=== PATIENT | female | born 1935 | race American Indian/Alaskan Native ===

== ENCOUNTER 2017-01-02 14:09 | Outpatient (CLI) | payer MEDICARE ==
--- NOTE | 2017-01-02 15:24 | XRay Report ---
AP chest x-ray. History: Shortness of breath and pedal edema. Findings: The heart is mildly enlarged. There is some mild central venous congestion, and the overall pattern is unchanged since 2015. No focal infiltrates or pleural fluid are present. The bony structures are unremarkable. Impression: No acute findings or interval changes since 2015.
== END 2017-01-02 14:10 | disposition home or self-care (01) ==
LOC: XRAY 14:09 → PET 14:09 → XRAY 14:10
PROVIDERS: ATTEND Family Medicine
DX: I51.7 Cardiomegaly (principal); I87.8 Other specified disorders of veins; R06.02 Shortness of breath; R60.9 Edema, unspecified
CPT/HCPCS: 71020

== ENCOUNTER 2018-11-24 14:55 | Inpatient (IN) | payer MEDICARE ==
[2018-11-24] MEDS ORDERED: SODIUM CHLORIDE FLUSH SYRINGE 10 ML IV PRN (15:11)
[2018-11-24] MEDS ORDERED: D50W (25GM) Syringe IV PRN (15:46)
[2018-11-24 17:27] LABS: Hematocrit 37.6 % (30.3-42.9); Hemoglobin 12.7 gm/dl (10.1-14.3); Mean Corpuscular HGB Conc 34 % (30-34); Mean Corpuscular Volume 90 fl (79-97); Platelet Count 273 K/mm3 (140-440); Red Blood Count 4.18 M/mm3 (3.65-5.03); Red Cell Distribution Width 13.9 % (13.2-15.2)
[2018-11-24 17:37] LABS: INR 0.89 (0.87-1.13)
[2018-11-24 17:49] LABS: Alanine Aminotransferase 14 units/L (7-56); Albumin 3.7 g/dL (3.9-5); BUN/Creatinine Ratio 23; Blood Urea Nitrogen 14 mg/dL (7-17); Calcium 9.4 mg/dL (8.4-10.2); Hemolysis Index 5
--- NOTE | 2018-11-24 17:54 | XRay Report ---
PROCEDURE: XR CHEST ROUTINE 2V TECHNIQUE: AP and lateral chest HISTORY: COUGH, SOB, R/O PNEUMONIA COMPARISONS: None FINDINGS: Low lung volume exam. Trachea midline. Mild cardiomegaly. Atherosclerotic calcification of the aorta No pneumothorax. No sizable effusion. No acute airspace disease Thoracolumbar scoliosis. Advanced multilevel degenerative disc disease IMPRESSION: Cardiomegaly. No overt failure. No acute pulmonary disease. This document is electronically signed by Nick Sweeney MD., November 24 2018 05:52:50 PM ET
[2018-11-24] MEDS ORDERED: PROTONIX IV SCH (18:00)
[2018-11-24] MEDS ORDERED: LOVENOX SUB-Q SCH (18:00)
[2018-11-24 18:29] LABS: Total Cells Counted 100
[2018-11-24 18:30] LABS: RBC Morphology Normal
[2018-11-24] MEDS: HumaLOG SUB-Q SCH ×2 (18:56→23:12)
--- NOTE | 2018-11-24 19:59 | History and Physical Report ---
History of Present Illness Date of examination: 11/24/18 Date of admission: 11/24/18 15:34 Chief complaint: cough, shortness of breath, altered mental status History of present illness: Patient is an 83-year-old lady with history of diabetes mellitus, hypertension, degenerative joint disease of the left hip, presented to my office today 11/24/18, in company of her granddaughter complaining of progressively worsening shortness of breath and cough for the past 2 days. Cough is nonproductive. Has subjective fever. Denies any chest pain, orthopnea or proximal nocturnal dyspnea. No abdominal pain nausea or vomiting. Patient was said to be altered in mental status from a baseline of being very interactive and very cognitive. Direct admission was therefore requested. Tempearture on admission was 100.4F Chest x-ray showed cardiomegaly. CBC showed leukocytosis of 14.9. Had elevated blood sugar of 200. Past History Past Medical History: diabetes, hypertension, other (DJD of the hip) Social history: denies: smoking, alcohol abuse, prescription drug abuse Family history: denies: hypertension Medications and Allergies Allergies Allergy/AdvReac Type Severity Reaction Status Date / Time aspirin AdvReac Unknown Verified 08/06/15 01:01 Home Medications Medication Instructions Recorded Confirmed Last Taken Type Saxagliptin HCl [Onglyza] 5 mg PO DAILY 08/06/15 11/24/18 Unknown History Albuterol *Only Ed* [Proventil 2.5 mg IH TIDRT PRN #60 nebu 08/10/15 11/24/18 Unknown Rx 0.5% NEBS] HYDROcodone/APAP 5-325 [[place] 1 each PO Q6H PRN #40 tablet 08/10/15 11/24/18 Unknown Rx 5-325 mg TAB] HYDROcodone/HOMATROP 5-1.5 5 ml PO BID PRN #200 oral liquid 08/10/15 11/24/18 Unknown Rx [HYDROcodone-Homatropin 5-1.5 mg per 5 ML] Linagliptin [Tradjenta] 5 mg PO QDAY #30 tablet 08/10/15 11/24/18 Unknown Rx Lisinopril [Zestril TAB] 40 mg PO QDAY #30 tablet 08/10/15 11/24/18 Unknown Rx amLODIPine [Norvasc] 10 mg PO QDAY #30 tablet 08/10/15 11/24/18 11/23/18 23:00 Rx glipiZIDE [Glucotrol] 5 mg PO BID #30 tablet 08/10/15 11/24/18 11/23/18 23:00 Rx cephALEXin [Keflex] 500 mg PO Q12HR #20 cap 04/30/16 11/24/18 Unknown Rx Active Meds: Active Medications Acetaminophen (Tylenol) 650 mg PO Q4H PRN PRN Reason: Pain MILD(1-3)/Fever >100.5/MARTI Albuterol/Ipratropium (Duoneb *Not For Prn Use*) 1 ampul IH Q6HRT [facility] Benzonatate (Tessalon Perles) 100 mg PO TID [facility] Dextrose (D50w (25gm) Syringe) 50 ml IV PRN PRN PRN Reason: Hypoglycemia Enoxaparin Sodium (Lovenox) 30 mg SUB-Q QDAY [facility] Ceftriaxone Sodium (Rocephin/Ns 1 Gm/50 Ml) 1 gm in 50 mls @ 100 mls/hr IV Q24HR [facility]; Protocol Azithromycin 500 mg/ Sodium (Chloride) 250 mls @ 250 mls/hr IV Q24HR [facility] Insulin Human Lispro (Humalog) 0 unit SUB-Q ACHS [facility]; Protocol Last Admin: 11/24/18 18:56 Dose: 3 unit Documented by: Pantoprazole Sodium (Protonix) 20 mg IV DAILY [facility] Last Admin: 11/24/18 18:59 Dose: 20 mg Documented by: Pneumococcal Polyvalent Vaccine (Pneumovax 23) 0.5 ml IM .ONCE ONE Stop: 11/25/18 12:01 Sodium Chloride (Sodium Chloride Flush Syringe 10 Ml) 10 ml IV BID [facility] Sodium Chloride (Sodium Chloride Flush Syringe 10 Ml) 10 ml IV PRN PRN PRN Reason: LINE FLUSH Review of systems Constitutional: Well Nourished and Well developed. Head: NC/ AT Eyes: Denies any visual impairments. No discharge from the eyes Nose: Denies any rhinorrhea or epistaxis Throats: Denies any post nasal drainage. Ears: Denies any hearing deficits Cardiovascular system: Denies any chest pain, shortness of breath, orthopnea, paroxysmal nocturnal dyspnea, or palpitation. Respiratory system: Denies any cough, difficulty breathing, wheezing, pleuritic chest pain, Gastrointestinal system: Denies any abdominal pain, nausea vomiting, hematemesis or melena. Neurological system: Denies any headache, slurred speech, facial droop, lateralizing weakness Genitalia system: Denies any dysuria, urinary frequency or urgency, urethral discharge Skin: No rashes, hyperpigmented spots. Hematological: Denies any cervical tenderness hemorrhages or petechia. Immunological: Denies any multiple septic spots, Lymphatic: Denies any generalized lymphadenopathy. Endocrine: Denies any polyuria, polydipsia, polyphagia. No heat or cold intolerance. Musculoskeletal system: No joint pain or swelling. Psych: No visual, tactile, auditory or hallucination Exam - Physical Exam Narrative exam: Constitutional: Ill-looking. Ambulates with a cane and support from weakness Head: Normocephalic atraumatic Eyes: Pupils are equal round and reactive to light Nose: No enlarged turbinates, no septal deviation. Mouth: Moist mucous membranes. Neck: Supple no thyromegaly. No bruit. No JVD Heart: Regular rate and rhythm, S1-S2 normal. No rubs murmurs or gallop Lungs: Clear to auscultation bilaterally. no rales or rhonchi Abdomen: Soft, nontender. Bowel sound are present. Extremities: No edema, no cyanosis, no clubbing. Neuro: Alert oriented Oriented x3. No focal sensory or motor deficit. Skin: No rashes or hyperpigmented spots Musculoskeletal system: No joint pain or swelling Hematological: No petechia or subcutanous hemorrhages. Immunological: No multiple septic spots on the skin Lymphatic: No generalized lymphadenopathy Psychiatry: Euthymic. Calm. - Constitutional Vitals: Temp Pulse Resp BP Pulse Ox 100.0 F H 82 18 148/67 92 11/24/18 16:18 11/24/18 16:18 11/24/18 16:18 11/24/18 16:18 11/24/18 16:18 Results - Labs CBC & Chem 7: 11/24/18 17:08 11/24/18 17:08 Labs: Abnormal lab results 11/24/18 11/24/18 11/24/18 Range/Units 17:08 17:08 18:46 WBC 14.9 H (4.5-11.0) K/mm3 Seg Neuts % (Manual) 92.0 H (40.0-70.0) % Lymphocytes % (Manual) 3.0 L (13.4-35.0) % Seg Neutrophils # Man 13.7 H (1.8-7.7) K/mm3 Lymphocytes # (Manual) 0.4 L (1.2-5.4) K/mm3 Creatinine 0.6 L (0.7-1.2) mg/dL Glucose 198 H (65-100) mg/dL POC Glucose 205 H (70-105) Albumin 3.7 L (3.9-5) g/dL Assessment and Plan Patient is an 83-year-old lady with a history of diabetes mellitus, hypertension and DJD of the left hip was admitted for cough and shortness of breath and alteration of her mental status. Her leukocytosis and cardiomegaly. - SIRS - with fever and Leukocytosis Blood and urine Cx -Possible pneumonia Blood and sputum culture ordered Pulse ox every 12 hours IV Rocephin and vancomycin Supplemental oxygen to maintain sat greater than 94 -Shortness of breath and cough Nasal swab for influenza A and B Likely secondary to #1 above Continue bronchodilators and supplemental oxygen - Metabolic encephalopathy Secondary to preceding diagnosis Judicious IV hydration given patient's age and cardiomegaly Continue to treat underlying factors -Diabetes mellitus type 2 Consistent carbohydrate diet, Obtain A1c, urinary microalbumin, Sliding scale insulin - Developed prophylaxis with Lovenox GI with Pepcid - Discussed clinical findings and management plan with pt's daughters and granddaughter in the room. Code status Full: Code Time spend: 45 mins
[2018-11-24] MEDS: ZITHROMAX 500 MG in NACL 0.9% 250ML 250 ML IV SCH (20:20)
[2018-11-24] MEDS: ZESTRIL PO SCH (20:20)
[2018-11-24] MEDS: NORVASC PO SCH (20:21)
[2018-11-24] MEDS: TYLENOL PO PRN (20:59)
[2018-11-24] MEDS ORDERED: NACL 0.45% 1000 ML 1,000 ML IV SCH (21:00)
[2018-11-24] MEDS: ROCEPHIN/NS 1 GM/50 ML 1 GM/50 ML BAG IV SCH (21:03)
[2018-11-24] MEDS: TESSALON PERLES PO SCH ×2 (21:04)
[2018-11-24] MEDS: DUONEB *Not for PRN Use IH SCH (21:22)
[2018-11-24 21:49] LABS: Chol/HDL Ratio 2.37 %
[2018-11-24] MEDS: SODIUM CHLORIDE FLUSH SYRINGE 10 ML IV SCH (23:13)
[2018-11-25 01:53] LABS: Bilirubin,Urine NEG (Negative); Blood,Urine SM (Negative); Color,Urine Colorless (Yellow); Protein,Urine <15 mg/dL mg/dL (Negative); RBC,Urine < 1.0 /HPF (0.0-6.0); Urobilinogen,Urine < 2.0 mg/dL (<2.0); WBC,Urine < 1.0 /HPF (0.0-6.0)
[2018-11-25 01:59] LABS: Creatinine,Urine 16.9 mg/dL (0.1-20.0)
[2018-11-25 05:53] LABS: Basophils % (Auto) 0.2 % (0.0-1.8); Eosinophils % (Auto) 0.4 % (0.0-4.3); Hematocrit 33.6 % (30.3-42.9); Hemoglobin 11.3 gm/dl (10.1-14.3); Lymphocytes # (Auto) 1.2 K/mm3 (1.2-5.4); Lymphocytes % (Auto) 10.1 % (13.4-35.0); Mean Corpuscular HGB Conc 34 % (30-34); Mean Corpuscular Volume 91 fl (79-97); Monocytes # (Auto) 0.7 K/mm3 (0.0-0.8); Monocytes % (Auto) 5.8 % (0.0-7.3); Platelet Count 264 K/mm3 (140-440); Red Blood Count 3.71 M/mm3 (3.65-5.03); Red Cell Distribution Width 14.3 % (13.2-15.2)
[2018-11-25] MEDS ORDERED: PROVENTIL IH PRN (05:55)
[2018-11-25] MEDS: TYLENOL PO PRN ×2 (05:59→09:40)
[2018-11-25 06:10] LABS: Alanine Aminotransferase 11 units/L (7-56); Albumin 3.1 g/dL (3.9-5); BUN/Creatinine Ratio 30; Blood Urea Nitrogen 12 mg/dL (7-17); Calcium 8.8 mg/dL (8.4-10.2); Hemolysis Index 8
[2018-11-25] MEDS: HumaLOG SUB-Q SCH ×4 (07:30→22:31)
[2018-11-25] MEDS: DUONEB *Not for PRN Use IH SCH ×2 (08:23→21:00)
--- NOTE | 2018-11-25 09:13 | Progress Note ---
Assessment and Plan Patient is an 83-year-old lady with a history of diabetes mellitus, hypertension and DJD of the left hip was admitted for cough and shortness of breath and alteration of her mental status. Her leukocytosis and cardiomegaly. - SIRS - with fever and Leukocytosis Blood and urine Cx - no growth so far -Possible pneumonia Blood and sputum culture ordered Pulse ox every 12 hours Continue with IV Rocephin and vancomycin Continue with Supplemental oxygen to maintain sat greater than 94 -Shortness of breath and cough Nasal swab for influenza A and B Likely secondary to #1 above Continue bronchodilators and supplemental oxygen - Metabolic encephalopathy Secondary to preceding diagnosis Judicious IV hydration given patient's age and cardiomegaly Continue to treat underlying factors -Diabetes mellitus type A1c 10.2% Consistent carbohydrate diet, Sliding scale insulin -DVT prophylaxis with Lovenox GI with Pepcid - Discussed clinical findings and management plan with pt's daughters and granddaughter in the room. Code status Full: Code Time spend: 30 mins Subjective Date of service: 11/25/18 Principal diagnosis: SIRS, possibly pneumonia, metabolic encephalopathy, diabetes mellitus. Interval history: Patient seen and exam. Lying quietly in bed. Denies any fever. No chest pain or shortness of breath. Objective - Exam Narrative Exam: Constitutional: Ill-looking. Head: Normocephalic atraumatic Eyes: Pupils are equal round and reactive to light Nose: No enlarged turbinates, no septal deviation. Mouth: Moist mucous membranes. Neck: Supple no thyromegaly. No bruit. No JVD Heart: Regular rate and rhythm, S1-S2 normal. No rubs murmurs or gallop Lungs: Clear to auscultation bilaterally. no rales or rhonchi Abdomen: Soft, nontender. Bowel sound are present. Extremities: No edema, no cyanosis, no clubbing. Neuro: Alert oriented Oriented x3. No focal sensory or motor deficit. Skin: No rashes or hyperpigmented spots Musculoskeletal system: No joint pain or swelling Hematological: No petechia or subcutanous hemorrhages. Immunological: No multiple septic spots on the skin Lymphatic: No generalized lymphadenopathy Psychiatry: Euthymic. Calm. - Constitutional Vitals: Vital Signs - 12hr 11/24/18 11/24/18 11/24/18 21:26 21:31 21:59 Temperature Pulse Rate Pulse Rate [ 97 H 98 H Anterior Bilateral Throughout] Pulse Rate [ Apical] Respiratory 18 Rate Respiratory 18 18 Rate [Anterior Bilateral Throughout] Blood Pressure Blood Pressure [Left] O2 Sat by Pulse 97 Oximetry 11/24/18 11/25/18 11/25/18 22:00 00:34 02:00 Temperature 97.4 F L Pulse Rate 76 79 Pulse Rate [ Anterior Bilateral Throughout] Pulse Rate [ 62 Apical] Respiratory 20 Rate Respiratory Rate [Anterior Bilateral Throughout] Blood Pressure Blood Pressure 129/54 [Left] O2 Sat by Pulse 96 97 94 Oximetry 11/25/18 11/25/18 11/25/18 02:15 05:59 06:59 Temperature 97.4 F L Pulse Rate Pulse Rate [ Anterior Bilateral Throughout] Pulse Rate [ Apical] Respiratory 20 20 18 Rate Respiratory Rate [Anterior Bilateral Throughout] Blood Pressure 129/54 Blood Pressure [Left] O2 Sat by Pulse Oximetry 11/25/18 07:16 Temperature 98.3 F Pulse Rate 71 Pulse Rate [ Anterior Bilateral Throughout] Pulse Rate [ Apical] Respiratory 18 Rate Respiratory Rate [Anterior Bilateral Throughout] Blood Pressure 126/52 Blood Pressure [Left] O2 Sat by Pulse 98 Oximetry - Labs CBC & Chem 7: 11/25/18 05:05 11/25/18 05:05 Labs: Abnormal lab results 11/24/18 11/24/18 11/24/18 Range/Units 17:08 17:08 17:08 WBC 14.9 H (4.5-11.0) K/mm3 Lymph % (Auto) (13.4-35.0) % Seg Neutrophils % (40.0-70.0) % Seg Neuts % (Manual) 92.0 H (40.0-70.0) % Lymphocytes % (Manual) 3.0 L (13.4-35.0) % Seg Neutrophils # (1.8-7.7) K/mm3 Seg Neutrophils # Man 13.7 H (1.8-7.7) K/mm3 Lymphocytes # (Manual) 0.4 L (1.2-5.4) K/mm3 Creatinine 0.6 L (0.7-1.2) mg/dL Glucose 198 H (65-100) mg/dL POC Glucose (70-105) Hemoglobin A1c 10.2 H (4-6) % Total Protein (6.3-8.2) g/dL Albumin 3.7 L (3.9-5) g/dL HDL Cholesterol (40-59) mg/dL Ur Specific [place] (1.003-1.030) 11/24/18 11/24/18 11/24/18 Range/Units 18:46 20:55 22:22 WBC (4.5-11.0) K/mm3 Lymph % (Auto) (13.4-35.0) % Seg Neutrophils % (40.0-70.0) % Seg Neuts % (Manual) (40.0-70.0) % Lymphocytes % (Manual) (13.4-35.0) % Seg Neutrophils # (1.8-7.7) K/mm3 Seg Neutrophils # Man (1.8-7.7) K/mm3 Lymphocytes # (Manual) (1.2-5.4) K/mm3 Creatinine (0.7-1.2) mg/dL Glucose (65-100) mg/dL POC Glucose 205 H 194 H (70-105) Hemoglobin A1c (4-6) % Total Protein (6.3-8.2) g/dL Albumin (3.9-5) g/dL HDL Cholesterol 69 H (40-59) mg/dL Ur Specific [place] (1.003-1.030) 11/25/18 11/25/18 11/25/18 Range/Units 00:50 05:05 05:05 WBC 11.9 H (4.5-11.0) K/mm3 Lymph % (Auto) 10.1 L (13.4-35.0) % Seg Neutrophils % 83.5 H (40.0-70.0) % Seg Neuts % (Manual) (40.0-70.0) % Lymphocytes % (Manual) (13.4-35.0) % Seg Neutrophils # 9.9 H (1.8-7.7) K/mm3 Seg Neutrophils # Man (1.8-7.7) K/mm3 Lymphocytes # (Manual) (1.2-5.4) K/mm3 Creatinine 0.4 L (0.7-1.2) mg/dL Glucose 101 H (65-100) mg/dL POC Glucose (70-105) Hemoglobin A1c (4-6) % Total Protein 5.9 L (6.3-8.2) g/dL Albumin 3.1 L (3.9-5) g/dL HDL Cholesterol (40-59) mg/dL Ur Specific [place] 1.002 L (1.003-1.030)
[2018-11-25] MEDS: SODIUM CHLORIDE FLUSH SYRINGE 10 ML IV SCH ×2 (09:30→22:31)
[2018-11-25] MEDS: LOVENOX SUB-Q SCH (09:31)
[2018-11-25] MEDS: TESSALON PERLES PO SCH ×3 (09:31→22:31)
[2018-11-25] MEDS: NORVASC PO SCH (09:31)
[2018-11-25] MEDS: ROCEPHIN/NS 1 GM/50 ML 1 GM/50 ML BAG IV SCH (09:31)
[2018-11-25] MEDS: ZESTRIL PO SCH (09:32)
[2018-11-25] MEDS: TRADJENTA PO SCH (09:32)
[2018-11-25] MEDS: PROTONIX PO SCH (09:32)
[2018-11-25] MEDS: ZITHROMAX 500 MG in NACL 0.9% 250ML 250 ML IV SCH (09:41)
[2018-11-25] MEDS: SOLU-Medrol IV SCH ×2 (10:26→22:31)
[2018-11-25] MEDS ORDERED: PNEUMOVAX 23 IM ONE (12:00)
[2018-11-26] MEDS: TYLENOL PO PRN (02:30)
[2018-11-26 05:23] LABS: Hematocrit 37.4 % (30.3-42.9); Hemoglobin 12.7 gm/dl (10.1-14.3); Mean Corpuscular HGB Conc 34 % (30-34); Mean Corpuscular Volume 90 fl (79-97); Platelet Count 278 K/mm3 (140-440); Red Blood Count 4.15 M/mm3 (3.65-5.03); Red Cell Distribution Width 14.2 % (13.2-15.2)
[2018-11-26 05:43] LABS: Alanine Aminotransferase 13 units/L (7-56); Albumin 3.5 g/dL (3.9-5); BUN/Creatinine Ratio 30; Blood Urea Nitrogen 15 mg/dL (7-17); Calcium 9.2 mg/dL (8.4-10.2); Hemolysis Index 7
[2018-11-26 06:53] LABS: Band Neutrophils # (Manual) 0.4 K/mm3; Basophils % (Manual) 0 % (0.0-1.8); Eosinophils % (Manual) 0 % (0.0-4.3); RBC Morphology Normal; Total Cells Counted 100
[2018-11-26 07:45] VITALS: BP 157/73
[2018-11-26] MEDS: HumaLOG SUB-Q SCH (08:00)
[2018-11-26] MEDS: DUONEB *Not for PRN Use IH SCH (09:02)
--- NOTE | 2018-11-26 09:38 | Progress Note ---
Assessment and Plan Patient is an 83-year-old lady with a history of diabetes mellitus, hypertension and DJD of the left hip was admitted for cough and shortness of breath and alteration of her mental status. Her leukocytosis and cardiomegaly. - SIRS - fever resolving and Leukocytosis Blood and urine Cx - no growth so far -Possible pneumonia Blood and sputum culture ordered Pulse ox every 12 hours Continue with IV Rocephin and vancomycin Continue with Supplemental oxygen to maintain sat greater than 94 Srtill tachychardic will get CTA -Shortness of breath and cough Nasal swab for influenza A and B Likely secondary to #1 above Continue bronchodilators and supplemental oxygen - Metabolic encephalopathy Secondary to preceding diagnosis Judicious IV hydration given patient's age and cardiomegaly Continue to treat underlying factors -Diabetes mellitus type A1c 10.2% Consistent carbohydrate diet, Sliding scale insulin -DVT prophylaxis with Lovenox GI with Pepcid - Discussed clinical findings and management plan with pt's daughters and gra nddaughter in the room. Code status Full: Code Time spend: 30 mins Subjective Date of service: 11/26/18 Principal diagnosis: SIRS, possibly pneumonia, metabolic encephalopathy, diabetes mellitus. Interval history: Patient seen and exam. Lying quietly in bed. Denies any fever. No chest pain or shortness of breath. still has palpitaion Objective - Exam Narrative Exam: Constitutional: Ill-looking. Head: Normocephalic atraumatic Eyes: Pupils are equal round and reactive to light Nose: No enlarged turbinates, no septal deviation. Mouth: Moist mucous membranes. Neck: Supple no thyromegaly. No bruit. No JVD Heart: Regular rate and rhythm, S1-S2 normal. No rubs murmurs or gallop Lungs: Clear to auscultation bilaterally. no rales or rhonchi Abdomen: Soft, nontender. Bowel sound are present. Extremities: No edema, no cyanosis, no clubbing. Neuro: Alert oriented Oriented x3. No focal sensory or motor deficit. Skin: No rashes or hyperpigmented spots Musculoskeletal system: No joint pain or swelling Hematological: No petechia or subcutanous hemorrhages. Immunological: No multiple septic spots on the skin Lymphatic: No generalized lymphadenopathy Psychiatry: Euthymic. Calm. - Constitutional Vitals: Vital Signs - 12hr 11/25/18 11/26/18 11/26/18 22:00 03:03 07:39 Temperature 98.3 F 98.3 F Pulse Rate 89 103 H Pulse Rate [ Anterior Bilateral Throughout] Respiratory 20 18 Rate Respiratory Rate [Anterior Bilateral Throughout] Blood Pressure 154/78 157/73 O2 Sat by Pulse 95 94 92 Oximetry 11/26/18 11/26/18 11/26/18 09:02 09:12 09:25 Temperature Pulse Rate Pulse Rate [ 108 H 107 H Anterior Bilateral Throughout] Respiratory Rate Respiratory 18 18 Rate [Anterior Bilateral Throughout] Blood Pressure O2 Sat by Pulse 98 Oximetry - Labs CBC & Chem 7: 11/26/18 04:38 11/26/18 04:38 Labs: Abnormal lab results 11/25/18 11/25/18 11/25/18 Range/Units 11:16 16:38 20:31 Seg Neuts % (Manual) (40.0-70.0) % Lymphocytes % (Manual) (13.4-35.0) % Seg Neutrophils # Man (1.8-7.7) K/mm3 Lymphocytes # (Manual) (1.2-5.4) K/mm3 Carbon Dioxide (22-30) mmol/L Creatinine (0.7-1.2) mg/dL Glucose (65-100) mg/dL POC Glucose 177 H 330 H 354 H (70-105) Albumin (3.9-5) g/dL 11/26/18 11/26/18 11/26/18 Range/Units 04:38 04:38 08:11 Seg Neuts % (Manual) 90.0 H (40.0-70.0) % Lymphocytes % (Manual) 4.0 L (13.4-35.0) % Seg Neutrophils # Man 8.8 H (1.8-7.7) K/mm3 Lymphocytes # (Manual) 0.4 L (1.2-5.4) K/mm3 Carbon Dioxide 21 L (22-30) mmol/L Creatinine 0.5 L (0.7-1.2) mg/dL Glucose 328 H (65-100) mg/dL POC Glucose 302 H (70-105) Albumin 3.5 L (3.9-5) g/dL
[2018-11-26] MEDS ORDERED: ZITHROMAX PO SCH (10:00)
[2018-11-26] MEDS: ZESTRIL PO SCH (10:49)
[2018-11-26] MEDS: NORVASC PO SCH (10:50)
[2018-11-26] MEDS: TESSALON PERLES PO SCH (10:50)
[2018-11-26] MEDS: SOLU-Medrol IV SCH (10:51)
[2018-11-26] MEDS: PROTONIX PO SCH (10:51)
[2018-11-26] MEDS: TRADJENTA PO SCH (10:52)
[2018-11-26] MEDS: LOVENOX SUB-Q SCH (11:46)
[2018-11-26] MEDS: ROCEPHIN/NS 1 GM/50 ML 1 GM/50 ML BAG IV SCH (11:47)
[2018-11-26] MEDS: SODIUM CHLORIDE FLUSH SYRINGE 10 ML IV SCH (11:54)
--- NOTE | 2018-11-26 13:59 | Discharge Summary ---
Providers - Providers Date of Admission: 11/24/18 15:34 Date of discharge: 11/26/18 Attending physician: JAYLNY GORMAN none Primary care physician: JAYLYN GORMAN Hospitalization Reason for admission: shortness of breah with cough and fever Pertinent studies: CXR, Procedures: None Hospital course: Patient is an 83-year-old lady with history of diabetes mellitus, hypertension, degenerative joint disease of the left hip, presented to my office today 11/24/18, in company of her granddaughter complaining of progressively worsening shortness of breath and cough for the past 2 days. Cough is nonproductive. Has subjective fever. Denies any chest pain, orthopnea or proximal nocturnal dyspnea. No abdominal pain nausea or vomiting. Patient was said to be altered in mental status from a baseline of being very interactive and very cognitive. Direct admission was therefore requested. Tempearture on admission was 100.4F Chest x-ray showed cardiomegaly. CBC showed leukocytosis of 14.9. Had elevated blood sugar of 200. Was commenced on iv Azithromycin and Rocephin, SSI, supplemental oxygen hydromet and home med continue on admission. Cough improved, Leukocytosis resolved. Patient developed acute delirium where she was [facility] she was in [place]. family member informed.Symptom improved and pt was discharged home with Levaquin to f/u with PCP in 3-5 days. Disposition: - TO HOME OR SELFCARE Time spent for discharge: 35 mins - Discharge Diagnoses (1) SIRS (systemic inflammatory response syndrome) Status: Acute (2) Leukocytosis Status: Acute Qualifiers: Leukocytosis type: bandemia Qualified Code(s): D72.825 - Bandemia (3) Shortness of breath Status: Acute Comment: Appreciably improved with bronchodilators and IV Levaquin Core Measure Documentation - Palliative Care Palliative Care/ Comfort Measures: Not Applicable - Core Measures Any of the following diagnoses?: none Exam - Physical Exam Narrative exam: Constitutional: Ill-looking. Head: Normocephalic atraumatic Eyes: Pupils are equal round and reactive to light Nose: No enlarged turbinates, no septal deviation. Mouth: Moist mucous membranes. Neck: Supple no thyromegaly. No bruit. No JVD Heart: Regular rate and rhythm, S1-S2 normal. No rubs murmurs or gallop Lungs: Clear to auscultation bilaterally. no rales or rhonchi Abdomen: Soft, nontender. Bowel sound are present. Extremities: No edema, no cyanosis, no clubbing. Neuro: Alert oriented Oriented x3. No focal sensory or motor deficit. Skin: No rashes or hyperpigmented spots Musculoskeletal system: No joint pain or swelling Hematological: No petechia or subcutanous hemorrhages. Immunological: No multiple septic spots on the skin Lymphatic: No generalized lymphadenopathy Psychiatry: Euthymic. Calm. - Constitutional Vitals: Temp Pulse Resp BP Pulse Ox 98.3 F 107 H 18 157/73 98 11/26/18 07:39 11/26/18 09:12 11/26/18 09:12 11/26/18 07:39 11/26/18 10:00 Plan Activity: fall precautions Weight Bearing Status: Non-Weight Bearing Diet: diabetic Follow up with: JAYLYN GORMAN MD [Primary Care Provider] - 7 Days Prescriptions: levoFLOXacin [Levaquin TAB] 500 mg PO QDAY #5 tablet
[2018-11-26] MEDS ORDERED: LEVAQUIN PO SCH (15:30)
== END 2018-11-26 13:40 | disposition home or self-care (01) | DRG 71 ==
LOC: 2B-ACE 14:55 → UNDOADMIN 14:55 → 2B-ACE 15:34
PROVIDERS: ADMIT Family Medicine; ATTEND Family Medicine
PROC: 3E0234Z Introduction of Serum, Toxoid and Vaccine into Muscle, Percutaneous Approach (ICD-10-PCS; principal; 2018-11-25)
DX: G93.41 Metabolic encephalopathy (principal); R65.10 Systemic inflammatory response syndrome (SIRS) of non-infectious origin without acute organ dysfunction; Z23 Encounter for immunization; Z88.6 Allergy status to analgesic agent; M16.12 Unilateral primary osteoarthritis, left hip; E11.9 Type 2 diabetes mellitus without complications; I11.9 Hypertensive heart disease without heart failure
CPT/HCPCS: 36415; 71046; 80053; 80061; 81001; 82043; 82962; 83036; 83735; 84100; 85007; 85025; 85610; 85730; 87040; 87070; 87205; 90732; 94640; 94760; G0378; C9113; J0456; J0696; J1650; J1815; J2920; J7030; J7050